=== PATIENT | female | born 1965 | race Caucasian/White ===

== ENCOUNTER 2019-06-12 12:13 | Emergency (ER) | payer OTHER ==
[2019-06-12 12:19] VITALS: BMI 32.8
[2019-06-12] MEDS ORDERED: ALBUTEROL SO4 2.5/IPRATROPIUM 0.5 INH SOL 3 ML VIAL.NEB. NEB ONE ×2 (12:37→12:38)
--- NOTE | 2019-06-12 13:04 | PDOC ---
History of Present Illness - General Chief Complaint: Respiratory Stated Complaint: SOB, COUGH Time Seen by Provider: 06/12/19 12:14 - History of Present Illness Initial Comments: 06/12/19 13:00 53F with no pmh presents to the ED with fatigue and shortness of breath exacerbated by exertion for the past 4 days. She has been feeling like doesn't bring her any rest. She denies fever, chills, fever, cough or congested sinus, chest pain or leg pain. No recent travel, surgeries. Has been a smoker since the age of 9. Past History - Past Medical History Allergies/Adverse Reactions: Allergies Allergy/AdvReac Type Severity Reaction Status Date / Time Penicillins Allergy Verified 06/12/19 12:14 Home Medications: Ambulatory Orders NK [No Known Home Medication] 06/12/19 COPD: No Other medical history: pt denies - Psycho Social/Smoking Cessation Hx Smoking History: Current some day smoker Have you smoked in the past 12 months: Yes If you are a former smoker, when did you quit?: 2 Information on smoking cessation initiated: Yes Hx Alcohol Use: ("weekends") Review of Systems - Review of Systems Able to Perform ROS?: Yes Is the patient limited Thai proficient: No Constitutional: Yes: Other (Fatigue) HEENTM: No: Symptoms Reported Respiratory: Yes: See HPI, SOB with Exertion Cardiac (ROS): No: Symptoms Reported ABD/GI: No: Symptoms Reported : No: Symptoms Reported Musculoskeletal: No: Symptoms Reported Integumentary: No: Symptoms Reported Neurological: No: Symptoms reported All Other Systems: Reviewed and Negative *Physical Exam - Vital Signs Last Vital Signs Temp Pulse Resp BP Pulse Ox 98.5 F 68 22 H 141/89 98 06/12/19 12:13 06/12/19 12:13 06/12/19 12:13 06/12/19 12:13 06/12/19 12:13 - Physical Exam General Appearance: Yes: Nourished, Appropriately Dressed. No: Apparent Distress HEENT: positive: EOMI, PAMELA, Normal ENT Inspection Respiratory/Chest: positive: Lungs Clear, Normal Breath Sounds, Rapid RR. negative: Chest Tender Cardiovascular: positive: Regular Rhythm, Regular Rate, S1, S2 Gastrointestinal/Abdominal: positive: Normal Bowel Sounds, Flat, Soft. negative : Tender Extremity: positive: Normal Capillary Refill, Normal Inspection, Normal Range of Motion Integumentary: positive: Normal Color, Dry, Warm Neurologic: positive: Fully Oriented, Alert, Normal Mood/Affect, Normal Response , Motor Strength 12/05 ED Treatment Course - LABORATORY CBC & Chemistry Diagram: 06/12/19 12:57 06/12/19 12:57 - RADIOLOGY Radiology Studies Ordered: Category Date Time Status CHEST PA & LAT [RAD] Stat Radiology 06/12/19 12:36 Ordered Medical Decision Making - Medical Decision Making 06/12/19 13:10 53F with no pmh presents to the ed with fatigue and shortness of breath for the past 4 days. PE vs NE vs COPD exacerbation vs URI vs ANDREW? Will obtain cxr and labs as well as duoneb 06/12/19 16:55 Feels better post treatment. CXR negative. Repeat ekg and troponin within normal limits. ok to dc with follow up. Discharge - Discharge Information Problems reviewed: Yes Clinical Impression/Diagnosis: SOB (shortness of breath) Condition: Stable Disposition: HOME - Admission No - Follow up/Referral Referrals: Monique Balbuena [Primary Care Provider] - - Patient Discharge Instructions Patient Printed Discharge Instructions: DI for Common Cold Additional Instructions: Follow up with your primary care physician within the next 3-4 days. Come back to the emergency department for any new, worsening or concerning symptom. - Post Discharge Activity
[2019-06-12 13:06] LABS: BASO % 0.1 % (0-2.0); EOS % 5.3 % (0-4.5); HEMATOCRIT 41.1 % (32.4-45.2); HEMOGLOBIN 13.4 GM/dl (10.7-15.3); LYMPH % 30.6 % (8-40); MCH 31.2 pg (25.7-33.7); MCHC 32.7 g/dl (32.0-36.0); MEAN CELL VOLUME 95.5 fl (80-96); MEAN PLT VOLUME 8.6 fl (7.5-11.1); MONO % 15.3 % (3.8-10.2); NEUT % 48.7 % (42.8-82.8); PLATELET COUNT 222 K/MM3 (134-434); RDW 12.9 % (11.6-15.6); WHITE BLOOD COUNT 5.8 K/mm3 (4.0-10.8)
[2019-06-12 13:23] LABS: ALBUMIN 3.6 g/dl (3.4-5.0); BILIRUBIN,TOTAL 0.5 mg/dl (0.2-1); CALCIUM 8.9 mg/dl (8.5-10); CREATININE 0.9 mg/dl (0.55-1.3); POTASSIUM 4.4 mmol/L (3.5-5.1); TOT PROT 6.6 g/dl (6.4-8.2)
[2019-06-12] MEDS ORDERED: predniSONE 20 MG TABLET (UD) PO ONE (14:09)
--- NOTE | 2019-06-12 14:10 | PDOC ---
Attending Attestation - Resident Resident Name: EastonVasiliy - ED Attending Attestation I have performed the following: I have examined & evaluated the patient, The case was reviewed & discussed with the resident, I agree w/resident's findings & plan, Exceptions are as noted - HPI HPI: 06/12/19 14:05. 53-year-old female with no significant past medical history presents to the emergency department with 4 days of fatigue and "feeling winded." She states she feels winded at rest, but it gets worse when she exerts herself. Denies any associated chest pain, dizziness, diaphoresis. Patient has been smoking since the age of 9. She has no known history of COPD or emphysema. Reports a possible sick contact as her roommate has been coughing. Today, she reports she was driving to work when she began to feel sleepy, at which point she decided to come to the emergency department for evaluation. She reports weeks of hot flashes, that she states are due to her being perimenopausal. Also reports that her voice feels hoarse. Denies sore throat, coughing, runny nose, dysphagia, body aches. Denies recent travel or immobility. Denies headache, dizziness, focal weakness or numbness, lower extremity edema or calf pain. No treatments tried. - Physicial Exam PE: 06/12/19 14:10 GENERAL: Awake, alert, and fully oriented, in no acute distress EYES: PERRLA, EOMI, sclera anicteric, conjunctiva clear ENT: Auricles normal inspection, hearing grossly normal, nares patent, oropharynx clear without exudates. Moist mucosa NECK: Normal ROM, supple, no lymphadenopathy, JVD, or masses LUNGS: Breath sounds equal, clear to auscultation bilaterally. No wheezes, and no crackles HEART: Regular rate and rhythm, normal S1 and S2, no murmurs, rubs or gallops ABDOMEN: Soft, nontender, normoactive bowel sounds. No guarding, no rebound. No masses EXTREMITIES: Normal range of motion, no edema. No clubbing or cyanosis. No cords, erythema, or tenderness NEUROLOGICAL: Normal speech, cranial nerves intact, equal strength and sensation b/l SKIN: Warm, Dry, normal turgor, no rashes or lesions noted. - Medical Decision Making 06/12/19 14:12 53-year-old female with no significant past medical history presents to the emergency department with generalized weakness and shortness of breath on exertion. Also reporting a hoarse voice. Initial vitals remarkable for mild tachypnea to 22, on repeat exam respiratory rate is 16. Remaining vitals within normal limits. Likely viral syndrome, however given dyspnea on exertion will obtain d-dimer to evaluate for PE. Patient is low risk. We will also obtain troponin and EKG for further evaluation of generalized weakness and shortness of breath. Will trial neb treatment for SOB as pt may possibly have undiagnosed COPD 06/12/19 16:50 Work-up negative including troponin x2. EKG is stable x2 Dimer negative CXR clear Rpt vitals wnl Likely viral syndrome. Patient is clinically stable for discharge home with outpatient primary care physician follow-up. I discussed the physical exam findings, ancillary test results and final diagnoses with the patient. I answered all of the patient's questions. The patient was satisfied with the care received and felt comfortable with the discharge plan and treatment plan. The patient will call their primary care physician within 24 hours to arrange follow-up and will return to the Emergency Department with any new, persistent or worsening symptoms. Heart Score/ECG Review #1 06/12/19 16:59 Twelve-lead EKG was performed and reviewed by me. Normal sinus rhythm, rate 67. Normal axis. No ST elevations. T wave inversions in V2, V3 with T wave flattening diffusely #2 06/12/19 17:00 Twelve-lead EKG was performed and reviewed by me. Sinus bradycardia, rate 56. Normal axis and intervals. No ST elevations. Again seen are T wave inversions in V2 and V3 as well as diffuse T wave flattening.
[2019-06-12 16:55] VITALS: TEMP 98.4
[2019-06-12 16:56] VITALS: BP 103/62; PULSE 66
--- NOTE | 2019-06-13 10:15 | EKG ---
Test Reason : Blood Pressure : / mmHG Vent. Rate : 056 BPM Atrial Rate : 056 BPM P-R Int : 162 ms QRS Dur : 088 ms QT Int : 446 ms P-R-T Axes : 036 016 038 degrees QTc Int : 430 ms SINUS BRADYCARDIA WITH SINUS ARRHYTHMIA OTHERWISE NORMAL ECG WHEN COMPARED WITH ECG OF 12-JUN-2019 14:07, T WAVE VARIATION Confirmed by LUANA HURD MD ([id number]) on 06/13/2019 10:15:08 AM Referred By: KAYLEE Confirmed By:LUANA HURD MD
--- NOTE | 2019-06-13 10:18 | EKG ---
Test Reason : Blood Pressure : / mmHG Vent. Rate : 067 BPM Atrial Rate : 067 BPM P-R Int : 158 ms QRS Dur : 094 ms QT Int : 402 ms P-R-T Axes : 035 011 014 degrees QTc Int : 424 ms NORMAL SINUS RHYTHM WITH SINUS ARRHYTHMIA NO PREVIOUS ECGS AVAILABLE Confirmed by LUANA HURD MD ([id number]) on 06/13/2019 10:18:04 AM Referred By: KAYLEE Confirmed By:LUANA HURD MD
== END 2019-06-12 17:15 | disposition home or self-care (01) ==
LOC: FER 12:13
PROC: 3E0F7GC Introduction of Other Therapeutic Substance into Respiratory Tract, Via Natural or Artificial Opening (ICD-10-PCS; principal; 2019-06-12)
DX: Z88.0 Allergy status to penicillin (principal); F17.210 Nicotine dependence, cigarettes, uncomplicated
CPT/HCPCS: 36415; 71046-TC-FY; 80053; 84484; 85025; 85379; 87804; 93005; 99285-25